=== PATIENT | female | born 1980 | race Caucasian/White ===

== ENCOUNTER 2016-12-25 12:26 | Emergency (ER) | payer BC, OTHER ==
[~2016-12-25] VITALS: Ht 165.1 cm; Wt 60.0 kg
[~2016-12-25 12:26] MED LIST: DICL75 PO; GABA600T PO; ULTR50TA PO
[2016-12-25 12:28] VITALS: BP 154/96; PULSE 97; RESP 18; TEMP 98.1; O2SAT 99
[2016-12-25] MEDS ORDERED: SODIUM CHLOR 0.9% 1000 ML INJ 1,000 ML IV ONE (12:31)
[2016-12-25] MEDS ORDERED: SODIUM CHLORIDE 0.9% FLUSH 10 ML FLUSH IVF PRN (12:45)
[2016-12-25 13:15] LABS: AUTOMATED NEUTROPHIL # 9.9 TH/MM3 (1.8-7.7); BASOPHIL % 0.2 % (0.0-2.0); EOSINOPHIL # 0.1 TH/MM3 (0-0.4); EOSINOPHIL % 0.9 % (0.0-4.0); HEMO FLAGS DIFF FINAL; LYMPH % 12.1 % (9.0-44.0); LYMPHOCYTE # 1.5 TH/MM3 (1.0-4.8); MEAN CELL VOLUME 89.3 FL (80.0-100.0); MEAN CORPUSCULAR HEMOGLOBIN 29.5 PG (27.0-34.0); MONO % 4.4 % (0.0-8.0); NEUT % 82.4 % (16.0-70.0); PLATELET COUNT 206 TH/MM3 (150-450); RED BLOOD COUNT 4.15 MIL/MM3 (4.00-5.30); RED CELL DISTRIBUTION WIDTH 12.9 % (11.6-17.2)
--- NOTE | 2016-12-25 13:23 | PD ---
HPI Chief Complaint: Seizure Time Seen by Provider: 12:31 Travel History International Travel<30 days: No Contact w/Intl Traveler<30days: No Traveled to known affect area: No History of Present Illness HPI Patient is a 36 year old female who comes in after a witnessed seizure. Patient was at the park with her children where, per EMS, she was witnessed to have generalized tonic-clonic movements. She does not remember what happened. She says she was feeling well prior to the event. She denies having a seizure before. She takes Tramadol for chronic back pain. She says she has a slight headache now. She denies any head trauma prior to the event. She denies fever or chills. She has several abrasions to her legs and elbows. Per EMS originally she did not want to come to the hospital. [facility] Past Medical History Musculoskeletal: Yes (HERNIATED DISC) ?: Not LMP: 11/28/2016 Social History Alcohol Use: Yes (SOCIALLY) Tobacco Use: No (FORMER) Substance Use: No Allergies-Medications (Allergen,Severity, Reaction): Coded Allergies: Ketorolac (Verified Adverse Reaction, Intermediate, RASH, 01/31/16) Reported Meds & Prescriptions Reported Meds & Active Scripts Active Diclofenac Sodium 75 Mg Tab 75 Mg PO BID PRN Reported Gabapentin 600 Mg Tab 600 Mg PO TID Ultram (Tramadol HCl) 50 Mg Tab 50 Mg PO Q2HR Review of Systems Except as stated in HPI: all other systems reviewed are Neg General / Constitutional: No: Fever, Chills Eyes: No: Blurred Vision HENT: Positive: Headaches Cardiovascular: No: Chest Pain or Discomfort Respiratory: No: Shortness of Breath Gastrointestinal: No: Nausea, Vomiting Musculoskeletal: No: Pain Skin: No Rash, No Change in Pigmentation Neurologic: Positive: Seizures, No: Weakness, Dizziness Physical Exam Narrative GENERAL: Awake and alert, in no acute distress. SKIN: Focused skin assessment warm/dry. Abrasion to the right elbow, right ankle and both knees. HEAD: Atraumatic. Normocephalic. EYES: Pupils equal and round. No scleral icterus. ENT: Mucous membranes pink and moist. NECK: Trachea midline. No JVD. No cervical spine tenderness. CARDIOVASCULAR: Regular rate and rhythm. No murmur appreciated. RESPIRATORY: No accessory muscle use. Clear to auscultation. Breath sounds equal bilaterally. GASTROINTESTINAL: Abdomen soft, non-tender, nondistended. Hepatic and splenic margins not palpable. MUSCULOSKELETAL: No obvious deformities. No clubbing. No cyanosis. No edema. Able to fully range all of her extremities. NEUROLOGICAL: Awake and alert. No obvious cranial nerve deficits. Motor grossly within normal limits. Normal speech. PSYCHIATRIC: Appropriate mood and affect; insight and judgment normal. Data Data Last Documented VS Vital Signs Date Time Temp Pulse Resp B/P Pulse Ox O2 Delivery O2 Flow Rate FiO2 12/25/16 16:00 71 16 133/72 99 12/25/16 12:28 98.1 Orders Complete Blood Count With Diff (12/25/16 12:31) Drug Screen, Random Urine (12/25/16 12:31) Electrocardiogram (12/25/16 ) Ct Brain W/O Iv Contrast(Rout) (12/25/16 ) Blood Glucose (12/25/16 12:31) Ecg Monitoring (12/25/16 12:31) Iv Access Insert/Monitor (12/25/16 12:31) Oximetry (12/25/16 12:31) Comprehensive Metabolic Panel (12/25/16 12:31) Sodium Chlor 0.9% 1000 Ml Inj (Ns 1000 M (12/25/16 12:31) Sodium Chloride 0.9% Flush (Ns Flush) (12/25/16 12:45) Ua Includes Microscopic (12/25/16 12:31) Urinalysis - C+S If Indicated (12/25/16 12:31) Labs Laboratory Tests Test 12/25/16 12/25/16 12:53 12:55 White Blood Count 12.0 TH/MM3 Red Blood Count 4.15 MIL/MM3 Hemoglobin 12.2 GM/DL Hematocrit 37.0 % Mean Corpuscular Volume 89.3 FL Mean Corpuscular Hemoglobin 29.5 PG Mean Corpuscular Hemoglobin 33.0 % Concent Red Cell Distribution Width 12.9 % Platelet Count 206 TH/MM3 Mean Platelet Volume 9.8 FL Neutrophils (%) (Auto) 82.4 % Lymphocytes (%) (Auto) 12.1 % Monocytes (%) (Auto) 4.4 % Eosinophils (%) (Auto) 0.9 % Basophils (%) (Auto) 0.2 % Neutrophils # (Auto) 9.9 TH/MM3 Lymphocytes # (Auto) 1.5 TH/MM3 Monocytes # (Auto) 0.5 TH/MM3 Eosinophils # (Auto) 0.1 TH/MM3 Basophils # (Auto) 0.0 TH/MM3 CBC Comment DIFF FINAL Differential Comment Sodium Level 139 MEQ/L Potassium Level 3.9 MEQ/L Chloride Level 102 MEQ/L Carbon Dioxide Level 27.9 MEQ/L Anion Gap 9 MEQ/L Blood Urea Nitrogen 9 MG/DL Creatinine 0.60 MG/DL Estimat Glomerular Filtration 112 ML/MIN Rate Random Glucose 72 MG/DL Calcium Level 8.1 MG/DL Total Bilirubin 0.4 MG/DL Aspartate Amino Transf 24 U/L (AST/SGOT) Alanine Aminotransferase 27 U/L (ALT/SGPT) Alkaline Phosphatase 46 U/L Total Protein 6.8 GM/DL Albumin 3.9 GM/DL Urine Color YELLOW Urine Turbidity HAZY Urine pH 7.5 Urine Specific [place] 1.019 Urine Protein 30 mg/dL Urine Glucose (UA) NEG mg/dL Urine Ketones TRACE mg/dL Urine Occult Blood NEG Urine Nitrite NEG Urine Bilirubin NEG Urine Urobilinogen LESS THAN 2.0 MG/DL Urine Leukocyte Esterase NEG Urine RBC LESS THAN 1 /hpf Urine WBC LESS THAN 1 /hpf Urine Squamous Epithelial 8 /hpf Cells Microscopic Urinalysis Comment CULT NOT INDICATED Urine Opiates Screen NEG Urine Barbiturates Screen NEG Urine Amphetamines Screen NEG Urine Benzodiazepines Screen NEG Urine Cocaine Screen NEG Urine Cannabinoids Screen NEG MDM Medical Decision Making Medical Screen Exam Complete: Yes Emergency Medical Condition: Yes Interpretation(s) ECG shows normal sinus rhythm at 69, no ST elevation or depression, normal intervals. Differential Diagnosis Seizure versus brain abnormality versus electrolyte abnormality versus infection Narrative Course Patient is a 36-year-old female who was witnessed to have a seizure today at the park. Exam shows no neurologic abnormalities. IV established, labs sent. Labs show no acute abnormalities. CT head shows no acute abnormalities per Dr. Kay. The report in the computer is inaccurate, and I confirmed with the radiologist that her head CT was within normal limits. Patient does take tramadol, advised this likely lowers her seizure threshold. She has not had any signs or symptoms of infection. She was observed in the emergency department without further seizure activity. She will go home with her significant other. He is advised to observe for any altered mental status and to return any time if there are concerns or she is not feeling well. Patient advised follow-up with neurology. Advised to avoid tramadol in the future. Given a prescription for Tylenol 3 for her back pain. Patient is comfortable with this plan at this time. Diagnosis Primary Impression: Seizure Referrals: Rama Choudhary MD call for appointment Patient Instructions: General Instructions, New-Onset Seizure in Adults (ED) Additional Instructions: Avoid tramadol. Follow up with neurology, Dr. Choudhary: [address] [place] [address] [phone]. Return to the ED at any time for any worsening symptoms. Scripts Acetaminophen-Codeine (Tylenol-Codeine #3)300-30 mg Tab1 Tab PO Q4H PRN (PAIN) # 10 TAB Ref 0 Prov:Mary Garvin MD 12/25/16 Disposition: 01 DISCHARGE HOME Condition: Stable Mary Garvin MD Dec 25, 2016 13:23
[2016-12-25 13:34] LABS: BLOOD, URINE NEG (NEG); COMMENT (UR) CULT NOT INDICATED; CULTURE IF INDICATED CULT NOT INDICATED; GLUCOSE,URINE NEG (NEG); KETONE, URINE TRACE mg/dL (NEG); NITRITE,URINE NEG (NEG); PH, URINE 7.5 (5.0-8.5); SQUAMOUS EPITHELIAL CELL URINE 8 /hpf (0-5); URINE COLOR YELLOW (YELLW/STRAW)
[2016-12-25 13:39] LABS: AMPHETAMINE, URINE NEG (NEG); BARBITURATES, URINE NEG (NEG); COCAINE, URINE NEG (NEG)
[2016-12-25 13:42] LABS: ALT (GPT) 27 U/L (10-53); ANION GAP 9 MEQ/L (5-15); AST (GOT) 24 U/L (15-37); BICARBONATE 27.9 MEQ/L (21.0-32.0); BLOOD UREA NITROGEN 9 MG/DL (7-18); CHLORIDE 102 MEQ/L (98-107); GLOMERULAR FILTRATION RATE 112 ML/MIN (>89); POTASSIUM 3.9 MEQ/L (3.5-5.1); SODIUM (NA) 139 MEQ/L (136-145)
[2016-12-25 13:44] LABS: ALKALINE PHOSPHATASE 46 U/L (45-117); TOTAL BILIRUBIN ADULT 0.4 MG/DL (0.2-1.0)
[2016-12-25 13:53] VITALS: O2SAT 99
[2016-12-25 14:05] VITALS: BP 131/88; PULSE 81; RESP 16; O2SAT 99
[2016-12-25 16:00] VITALS: BP 133/72; PULSE 71; RESP 16; O2SAT 99
--- NOTE | 2016-12-25 16:39 | RADRPT ---
EXAM DATE/TIME: 12/25/2016 16:10 CORRECTION Corrected on: December 25, 2016; [facility] COMPARISON: No previous studies available for comparison. INDICATIONS : New onset seizure. RADIATION DOSE: 56.35 CTDIvol (mGy) MEDICAL HISTORY : None SURGICAL HISTORY : None. ENCOUNTER: Initial ACUITY: 2 days PAIN SCALE: 0/10 LOCATION: cranial TECHNIQUE: Multiple contiguous axial images were obtained of the head. Using automated exposure control and adj ustment of the mA and/or kV according to patient size, radiation dose was kept as low as reasonably a chievable to obtain optimal diagnostic quality images. FINDINGS: CEREBRUM: The ventricles are normal for age. No evidence of midline shift, mass lesion, hemorrhage or acute in farction. No extra-axial fluid collections are seen. POSTERIOR FOSSA: The cerebellum and brainstem are intact. The 4th ventricle is midline. The cerebellopontine angle i s unremarkable. EXTRACRANIAL: The visualized portion of the orbits is intact. SKULL: The calvaria is intact. No evidence of skull fracture. CONCLUSION: Negative noncontrast CT brain. Edouard Gustafson MD on December 25, 2016 at 17:06 Board Certified Radiologist. This report was verified electronically.
[2016-12-25 17:13] VITALS: BP 131/75
[2016-12-25] MEDS ORDERED: TYLETAB34 PO (17:14)
--- NOTE | 2016-12-26 13:37 | EKG ---
Date Performed: 12/25/2016 Time Performed: 14:03:10 PTAGE: 36 years EKG: Sinus rhythm NORMAL ECG NO PREVIOUS TRACING DOCTOR: Wesley Sam Interpretating Date/Time 12/26/2016 13:33:15
== END 2016-12-25 17:22 | disposition home or self-care (01) ==
LOC: NEPC 12:26
DX: R56.9 Unspecified convulsions (principal); R51 Headache; S50.311A Abrasion of right elbow, initial encounter; S90.511A Abrasion, right ankle, initial encounter; S80.212A Abrasion, left knee, initial encounter; S80.211A Abrasion, right knee, initial encounter; Z87.39 Personal history of other diseases of the musculoskeletal system and connective tissue; X58.XXXA Exposure to other specified factors, initial encounter; Y92.830 Public park as the place of occurrence of the external cause
CPT/HCPCS: 70450; 80053; 80307; 81001; 84703; 85025; 93005; 96360; 99285; J7030

== ENCOUNTER 2017-03-21 08:55 | Observation (INO) | payer BC ==
[2017-03-21] VITALS (10 sets, daily range): BP systolic 113–130; BP diastolic 57–85; PULSE 63–105; RESP 11–24; TEMP 97.7–98; O2SAT 98–100
[~2017-03-21] VITALS: Ht 165.1 cm; Wt 59.5 kg
[~2017-03-21 08:55] MED LIST changes: +TYLETAB34 PO
[2017-03-21] MEDS ORDERED: LORazepam 2 MG/ML VIAL IV PUSH ONE ×2 (09:30→11:15)
[2017-03-21 09:33] LABS: BASOPHIL % 0.4 % (0.0-2.0); EOSINOPHIL # 0.3 TH/MM3 (0-0.4); EOSINOPHIL % 4.6 % (0.0-4.0); HEMATOCRIT 38.3 % (35.0-46.0); HEMO FLAGS DIFF FINAL; LYMPH % 28.8 % (9.0-44.0); LYMPHOCYTE # 1.9 TH/MM3 (1.0-4.8); MEAN CELL VOLUME 93.2 FL (80.0-100.0); MEAN CORPUSCULAR HGB CONC 33.3 % (32.0-36.0); MONO % 6.1 % (0.0-8.0); NEUT % 60.1 % (16.0-70.0); PLATELET COUNT 207 TH/MM3 (150-450); RED BLOOD COUNT 4.11 MIL/MM3 (4.00-5.30); RED CELL DISTRIBUTION WIDTH 13.1 % (11.6-17.2); WHITE BLOOD COUNT 6.6 TH/MM3 (4.0-11.0)
[2017-03-21 09:44] LABS: PROTHROMBIN TIME - PATIENT 10.7 SEC (9.8-11.6)
--- NOTE | 2017-03-21 09:47 | RADRPT ---
EXAM DATE/TIME: 03/21/2017 09:29 [facility] COMPARISON: No previous studies available for comparison. INDICATIONS : Short of breath, seizure today. MEDICAL HISTORY : hx of seizures SURGICAL HISTORY : None. ENCOUNTER: Initial ACUITY: 1 day PAIN SCORE: 0/10 LOCATION: Bilateral chest FINDINGS: A single view of the chest demonstrates the lungs to be symmetrically aerated without evidence of mas s, infiltrate or effusion. The cardiomediastinal contours are unremarkable. Osseous structures are intact. CONCLUSION: No acute disease. Zeke Castillo MD on March 21, 2017 at 9:45 Board Certified Radiologist. This report was verified electronically.
[2017-03-21 09:49] LABS: ALT (GPT) 40 U/L (10-53); ANION GAP 12 MEQ/L (5-15); AST (GOT) 40 U/L (15-37); BICARBONATE 23.9 MEQ/L (21.0-32.0); BLOOD UREA NITROGEN 9 MG/DL (7-18); CHLORIDE 103 MEQ/L (98-107); GLOMERULAR FILTRATION RATE 84 ML/MIN (>89); POTASSIUM 3.3 MEQ/L (3.5-5.1); SODIUM (NA) 139 MEQ/L (136-145)
[2017-03-21 09:58] LABS: ALKALINE PHOSPHATASE 51 U/L (45-117); TOTAL BILIRUBIN ADULT 0.2 MG/DL (0.2-1.0)
[2017-03-21] MEDS ORDERED: GABA300C5 PO (10:07)
[2017-03-21] MEDS ORDERED: ONDANSETRON HCL 4 MG/2 ML VIAL IV PUSH ONE (10:15)
--- NOTE | 2017-03-21 10:39 | RADRPT ---
EXAM DATE/TIME: 03/21/2017 10:30 [facility] COMPARISON: CT BRAIN W/O CONTRAST, December 25, 2016, 16:10. INDICATIONS : Seizure today. RADIATION DOSE: 33.89 CTDIvol (mGy) MEDICAL HISTORY : Seizures. SURGICAL HISTORY : None. ENCOUNTER: Initial ACUITY: 1 day PAIN SCALE: 0/10 LOCATION: cranial TECHNIQUE: Multiple contiguous axial images were obtained of the head. Using automated exposure control and adj ustment of the mA and/or kV according to patient size, radiation dose was kept as low as reasonably a chievable to obtain optimal diagnostic quality images. DICOM format image data is available electro nically for review and comparison. FINDINGS: CEREBRUM: The ventricles are normal for age. No evidence of midline shift, mass lesion, hemorrhage or acute in farction. No extra-axial fluid collections are seen. POSTERIOR FOSSA: The cerebellum and brainstem are intact. The 4th ventricle is midline. The cerebellopontine angle i s unremarkable. EXTRACRANIAL: The visualized portion of the orbits is intact. SKULL: The calvaria is intact. No evidence of skull fracture. CONCLUSION: No acute intracranial disease. Zeke Castillo MD on March 21, 2017 at 10:35 Board Certified Radiologist. This report was verified electronically.
[2017-03-21 11:08] LABS: BLOOD, URINE NEG (NEG); COMMENT (UR) CULT NOT INDICATED; CULTURE IF INDICATED CULT NOT INDICATED; GLUCOSE,URINE NEG (NEG); KETONE, URINE NEG (NEG); MUCUS URINE FEW /lpf (OCC); NITRITE,URINE NEG (NEG); SQUAMOUS EPITHELIAL CELL URINE 21 /hpf (0-5); URINE COLOR YELLOW (YELLW/STRAW)
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
[2017-03-21] MEDS ORDERED: SODIUM CHLOR 0.9% 1000 ML INJ 1,000 ML IV SCH (11:30)
[2017-03-21] MEDS ORDERED: levETIRAcetam 500 MG TAB PO ONE (11:45)
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
[2017-03-21] MEDS ORDERED: SODIUM CHLORIDE 0.9% FLUSH 10 ML FLUSH IV FLUSH PRN (12:30)
[2017-03-21] MEDS ORDERED: BISACODYL 10 MG SUPP RECTAL PRN (12:30)
[2017-03-21] MEDS ORDERED: NALOXONE HCL 0.4 MG/ML AMP IV PRN ×2 (12:30)
[2017-03-21] MEDS ORDERED: HYDROmorphone HCL PF 1 MG/ML VIAL IV PRN (12:30)
[2017-03-21] MEDS ORDERED: KETOROLAC TROMETHAMINE 30 MG/ML (IVP) VIAL IVP PRN ×2 (12:30)
[2017-03-21] MEDS ORDERED: ACETAMINOPHEN 325 MG TAB PO PRN ×2 (12:30)
[2017-03-21] MEDS ORDERED: SENNOSIDES 8.6 MG TAB PO PRN (12:30)
[2017-03-21] MEDS ORDERED: MAGNESIUM HYDROXIDE SUSP 30 ML CUP PO PRN (12:30)
[2017-03-21] MEDS ORDERED: ONDANSETRON HCL 4 MG/2 ML VIAL IVP PRN (12:30)
[2017-03-21] MEDS ORDERED: LACTULOSE SYRUP 20 GM/30 ML CUP PO PRN (12:30)
[2017-03-21] MEDS ORDERED: ACETAMINOPHEN/HYDROcodone 325 MG/7.5 MG TAB PO PRN (14:00)
--- NOTE | 2017-03-21 15:56 | RADRPT ---
EXAM DATE/TIME: 03/21/2017 15:34 [facility] COMPARISON: CT BRAIN W/O CONTRAST, March 21, 2017, 10:30. INDICATIONS : Epilepsy. MEDICAL HISTORY : Seizures. SURGICAL HISTORY : TBI ENCOUNTER: Initial ACUITY: 1 day PAIN SCORE: 10 LOCATION: Bilateral cranial TECHNIQUE: Multiplanar, multisequence MRI of the brain was performed without contrast. FINDINGS: CEREBRUM: The ventricles are normal for age. No evidence of midline shift, mass lesion, hemorrhage or acute in farction. No extraaxial fluid collections are seen. The pituitary gland and suprasellar cistern are normal in configuration. WHITE MATTER: No significant signal abnormalities are seen in the white matter. POSTERIOR FOSSA: The cerebellum and brainstem are intact. The 4th ventricle is midline. The cerebellopontine angle is unremarkable. The cerebellar tonsils are normal in position. DIFFUSION IMAGING: No focal areas of restricted diffusion are seen. No evidence of acute infarction. EXTRACRANIAL: The visualized portions of the orbits and paranasal sinuses are unremarkable. CONCLUSION: Normal examination. Cliff Stern MD on March 21, 2017 at 15:54 Board Certified Radiologist. This report was verified electronically.
[2017-03-21] MEDS ORDERED: ENALAPRILAT 1.25 MG/ML VIAL IV PRN (16:00)
[2017-03-21] MEDS ORDERED: LORazepam 2 MG/ML VIAL IV PUSH PRN (16:00)
[2017-03-21] MEDS ORDERED: ACETAMINOPHEN/HYDROcodone 325 MG/10 MG TAB PO PRN (16:15)
[2017-03-21] MEDS: ACETAMINOPHEN 325 MG TAB PO PRN (16:26)
[2017-03-21] MEDS: ENOXAPARIN SODIUM 40 MG/0.4 ML SYRINGE SQ SCH (16:26)
[2017-03-21] MEDS: DEXT 5%-NACL 0.45% 1000 ML INJ 1,000 ML IV SCH (17:55)
[2017-03-21] MEDS ORDERED: POTASSIUM CHLOR 20 MEQ PREMIX 100 ML IV ONE (18:00)
[2017-03-21 18:38] LABS: ALT (GPT) 38 U/L (10-53); ANION GAP 7 MEQ/L (5-15); AST (GOT) 35 U/L (15-37); BICARBONATE 30.3 MEQ/L (21.0-32.0); BLOOD UREA NITROGEN 8 MG/DL (7-18); CHLORIDE 101 MEQ/L (98-107); GLOMERULAR FILTRATION RATE 106 ML/MIN (>89); MAGNESIUM 1.9 MG/DL (1.5-2.5); POTASSIUM 3.8 MEQ/L (3.5-5.1); SODIUM (NA) 138 MEQ/L (136-145)
[2017-03-21 18:40] LABS: ALKALINE PHOSPHATASE 54 U/L (45-117); TOTAL BILIRUBIN ADULT 0.5 MG/DL (0.2-1.0)
--- NOTE | 2017-03-21 19:39 | EKG ---
Date Performed: 03/21/2017 Time Performed: 09:26:40 PTAGE: 36 years EKG: Sinus rhythm POSSIBLE LEFT ATRIAL ENLARGEMENT BORDERLINE ECG PREVIOUS TRACING 12/25/2016 14.03.10 Since previous tracing, no significant change noted DOCTOR: Juanito Jacob Interpretating Date/Time 03/21/2017 19:39:04
[2017-03-21] MEDS: GABAPENTIN 300 MG CAP PO SCH (20:35)
[2017-03-21] MEDS: DOCUSATE SODIUM 50 MG/SENNA 8.6 MG TAB PO SCH (20:35)
[2017-03-21] MEDS: levETIRAcetam 500 MG TAB PO SCH (20:35)
[2017-03-21] MEDS: SODIUM CHLORIDE 0.9% FLUSH 10 ML FLUSH IV FLUSH SCH (20:36)
[2017-03-22] VITALS (7 sets, daily range): BP systolic 104–131; BP diastolic 62–87; PULSE 53–66; RESP 16–20; TEMP 97–98.3; O2SAT 97–100
[2017-03-22] MEDS: ACETAMINOPHEN 325 MG TAB PO PRN ×2 (02:58→04:34)
[2017-03-22] MEDS: DEXT 5%-NACL 0.45% 1000 ML INJ 1,000 ML IV SCH (02:58)
[2017-03-22] MEDS: ACETAMINOPHEN/HYDROcodone 325 MG/5 MG TAB PO PRN ×2 (04:38→10:30)
[2017-03-22 06:52] LABS: AUTOMATED NEUTROPHIL # 2.7 TH/MM3 (1.8-7.7); BASOPHIL % 0.7 % (0.0-2.0); EOSINOPHIL # 0.4 TH/MM3 (0-0.4); EOSINOPHIL % 7.5 % (0.0-4.0); HEMATOCRIT 37.2 % (35.0-46.0); HEMO FLAGS DIFF FINAL; LYMPH % 32.7 % (9.0-44.0); LYMPHOCYTE # 1.8 TH/MM3 (1.0-4.8); MEAN CELL VOLUME 92.6 FL (80.0-100.0); MEAN CORPUSCULAR HEMOGLOBIN 31.2 PG (27.0-34.0); MEAN CORPUSCULAR HGB CONC 33.7 % (32.0-36.0); MONO % 9.1 % (0.0-8.0); PLATELET COUNT 169 TH/MM3 (150-450); RED BLOOD COUNT 4.02 MIL/MM3 (4.00-5.30); RED CELL DISTRIBUTION WIDTH 13.1 % (11.6-17.2); WHITE BLOOD COUNT 5.4 TH/MM3 (4.0-11.0)
[2017-03-22 07:16] LABS: BICARBONATE 28.9 MEQ/L (21.0-32.0); POTASSIUM 4.2 MEQ/L (3.5-5.1)
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
[2017-03-22] MEDS: DOCUSATE SODIUM 50 MG/SENNA 8.6 MG TAB PO SCH (10:12)
[2017-03-22] MEDS: GABAPENTIN 300 MG CAP PO SCH (10:12)
[2017-03-22] MEDS: SODIUM CHLORIDE 0.9% FLUSH 10 ML FLUSH IV FLUSH SCH (10:13)
[2017-03-22] MEDS: levETIRAcetam 500 MG TAB PO SCH (10:13)
--- NOTE | 2017-03-22 12:15 | MG ---
cc: JACLYN HEREDIA MD, HUNG M.D. 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 MEDICATIONS Keppra, Zofran, gabapentin, dextrose, Lovenox, Tylenol, [place]. DESCRIPTION The background activity is 9-10 Hz located posterior, bilateral and symmetrical. Attenuates to eye opening. Superimposed by excess beta activity. Hyperventilation with no major change in the EEG. Photic stimulation did not elicit a driving response. During the recording there was transitioning to stage II sleep with slowing of the background and the appearance of K-complexes. There were no electrographic seizures or epileptiform discharges noted during the recording. INTERPRETATION This is an awake, drowsy and asleep EEG. Beta activity may be related to medication adverse effects such as benzos and barbiturates. The absence of electrographic seizures or epileptiform discharges does not rule out a diagnosis of epilepsy. Clinical correlation is recommended. Jaclyn Heredia MD RGO/MISAEL /11:49 AM /12:12 PM MTDD
[2017-03-22] MEDS: ENOXAPARIN SODIUM 40 MG/0.4 ML SYRINGE SQ SCH (12:20)
--- NOTE | 2017-03-22 13:10 | ECHRPT ---
Indication: syncope CONCLUSIONS Normal left ventricular size. Wall thickness is normal. Trace mitral valve regurgitation. No aortic valve stenosis. No aortic valve regurgitation. There is mild tricuspid valve regurgitation. The estimated pulmonary arterial pressure is _31_ mmHg. The pulmonary valve is not well visualized. BP: 122 / 72 HR: 68 Rhythm: MEASUREMENTS (Male / Female) Normal Values Technical Quality:Good 2D ECHO LV Diastolic Diameter PLAX 5.2 cm 4.2 - 5.9 / 3.9 - 5.3 cm LV Systolic Diameter PLAX 3.7 cm IVS Diastolic Thickness 1.0 cm 0.6 - 1.0 / 0.6 - 0.9 cm LVPW Diastolic Thickness 0.8 cm 0.6 - 1.0 / 0.6 - 0.9 cm LV Relative Wall Thickness 0.3 RV Internal Dim ED PLAX 2.7 cm M-MODE Aortic Root Diameter MM 2.5 cm LA Systolic Diameter MM 3.1 cm LA Ao Ratio MM 1.2 AV Cusp Separation MM 2.4 cm DOPPLER Mitral E Point Velocity 98.2 cm/s Mitral A Point Velocity 72.1 cm/s Mitral E to A Ratio 1.4 LV E' Lateral Velocity 15.2 cm/s Mitral E to LV E' Lateral Ratio 6.5 LV E' Septal Velocity 7.9 cm/s Mitral E to LV E' Septal Ratio 12.4 TR Peak Velocity 231.0 cm/s TR Peak Gradient 21.3 mmHg FINDINGS LEFT VENTRICLE Normal left ventricular size. Wall thickness is normal. RIGHT VENTRICLE Normal right ventricular size and systolic function. LEFT ATRIUM The left atrial size is normal. RIGHT ATRIUM The right atrial size is normal. ATRIAL SEPTUM Normal atrial septal thickness without atrial level shunting by limited color doppler interrogation. AORTA The aortic root and proximal ascending aorta are normal in size on limited imaging. MITRAL VALVE Structurally normal mitral valve. Trace mitral valve regurgitation. AORTIC VALVE Trileaflet aortic valve. No aortic valve stenosis. No aortic valve regurgitation. TRICUSPID VALVE Structurally normal tricuspid valve. There is mild tricuspid valve regurgitation. The estimated pulmonary arterial pressure is _31_ mmHg. PULMONARY VALVE The pulmonary valve is not well visualized. VESSELS The inferior vena cava is normal in size. PERICARDIUM No pericardial effusion. Maine Rogers MD, FACC (Electronically Signed) Final Date:22 March 2017 13:09
--- NOTE | 2017-03-22 15:56 | HHI.FPPN ---
Addendum to progress note ADDENDUM Reason for addendum: Additonal documentation Additional information Discussed case w/ neurologist Dr. Tony today, who agrees with care. States he is willing to see patient on Tuesday at his office and has provided patient with contact number to schedule appointment for then. Patient should not drive for 6 months. Will make sure to relay all of the above information to patient before discharge. Rosalina Gotti MD R1 Mar 22, 2017 15:56
[2017-03-22] MEDS ORDERED: LEVE500 PO (16:05)
--- NOTE | 2017-03-22 16:08 | HHI.DCPOC ---
Discharge Care Plan Diagnosis: (1) Seizure Goals to Promote Your Health * To prevent worsening of your condition and complications, please take your medication as prescribed and follow up with neurology. * To maintain your health at the optimal level, follow up with your doctor. Directions to Meet Your Goals Take your medications as prescribed Follow your dietary instruction Follow activity as directed: NO DRIVING FOR 6 MONTHS Keep your appointments as scheduled Take your immunizations and boosters as scheduled If your symptoms worsen call your PCP, if no PCP go to Urgent Care Center or Emergency Room Smoking is Dangerous to Your Health. Avoid second hand smoke Call the 24-hour hour crisis hotline for domestic abuse at Rosalina Gotti MD R1 Mar 22, 2017 16:08 Anoop Blue MD R1 Mar 22, 2017 16:27
== END 2017-03-22 17:51 | disposition home or self-care (01) ==
LOC: NEPE 08:55 → INTOOBSV 11:55 → NEDA 11:55 → N04B 16:24 → N04A 03-22 16:12
PROVIDERS: ADMIT Family Medicine; ATTEND Family Medicine
DX: G40.409 Other generalized epilepsy and epileptic syndromes, not intractable, without status epilepticus (principal); R55 Syncope and collapse; R51 Headache; E16.2 Hypoglycemia, unspecified; G89.29 Other chronic pain; M54.40 Lumbago with sciatica, unspecified side; E87.6 Hypokalemia; R01.1 Cardiac murmur, unspecified; Z79.899 Other long term (current) drug therapy
CPT/HCPCS: 70450; 70551; 71010; 80048; 80053; 81001; 82948; 83735; 84443; 84703; 85025; 85610; 85730; 93005; 93306; 95819; 96374; 96375; 96376; 99285; G0378; J1170; J1650; J2060; J2405; J3480; J7030

== ENCOUNTER 2017-08-14 17:00 | Emergency (ER) | payer BC, OTHER ==
[~2017-08-14] VITALS: Ht 165.1 cm; Wt 59.0 kg
[~2017-08-14 17:00] MED LIST changes: -DICL75 PO; +GABA300C5 PO; -GABA600T PO; +LEVE500 PO; -TYLETAB34 PO; -ULTR50TA PO
[2017-08-14 17:07] VITALS: BP 108/63; PULSE 64; RESP 16; TEMP 97.6; O2SAT 98
[2017-08-14] MEDS ORDERED: TRAM50TA PO (17:11)
--- NOTE | 2017-08-14 17:41 | PD ---
HPI Chief Complaint: Laceration/Skin Injury Time Seen by Provider: 17:31 Travel History International Travel<30 days: No Contact w/Intl Traveler<30days: No Traveled to known affect area: No History of Present Illness HPI 36 year old female here with laceration to her left forearm caused by broken glass. She reports while she was in a trash bag into a container a piece of glass cut her arm. She denies paresthesia or weakness of the extremity. Tetanus immunization is unknown. She has pain at the site of the laceration. Symptom severity moderate. No aggravating or alleviating factors. PFSH Past Medical History Medical History: Denies Significant Hx Arthritis: No Autoimmune Disease: No Cancer: No Cardiovascular Problems: No Cerebrovascular Accident: No Diminished Hearing: No Endocrine: No Genitourinary: No Immune Disorder: No Musculoskeletal: Yes (HERNIATED DISC) Neurologic: Yes Psychiatric: No Reproductive: No Respiratory: No Migraines: No Seizures: Yes (X 03 jan 2017) Sickle Cell Disease: No Tetanus Vaccination: < 5 Years Influenza Vaccination: Yes ?: Not : 2 Para: 2 Past Surgical History Surgical History: No Previous Surgery AICD: No Arteriovenous Shunt: No Joint Replacement: No Pacemaker: No Social History Alcohol Use: Yes (SOCIALLY) Tobacco Use: No Substance Use: No Allergies-Medications (Allergen,Severity, Reaction): Coded Allergies: ketorolac (Unverified Adverse Reaction, Intermediate, RASH, 08/14/17) Reported Meds & Prescriptions Reported Meds & Active Scripts Active Reported Tramadol (Tramadol HCl) 50 Mg Tab 50 Mg PO Q8H PRN Gabapentin 300 Mg Cap 600 Mg PO BID Review of Systems Except as stated in HPI: all other systems reviewed are Neg Physical Exam Narrative GENERAL: Alert female in no distress. SKIN: Warm and dry. Laceration to the left forearm. HEAD: Normocephalic. EYES: No injection or drainage. NECK: Supple, trachea midline. CARDIOVASCULAR: Regular rate and rhythm without murmurs, gallops, or rubs. RESPIRATORY: Breath sounds equal bilaterally. No accessory muscle use. MUSCULOSKELETAL: No cyanosis, or edema. Left upper extremity: 3 cm laceration to the left distal forearm. No tendon or vascular injury identified. Normal range of motion of the wrist and digits distal to the lack. 2+ radial ulnar pulses. Normal sensation. Brisk cap refill. Data Data Last Documented VS Vital Signs Date Time Temp Pulse Resp B/P (MAP) Pulse Ox O2 Delivery O2 Flow Rate FiO2 08/14/17 17:10 (78) 08/14/17 17:07 97.6 64 16 98 Room Air Orders Orders Wrist, Limited (Ap&Lat) (08/14/17 ) [facility] Medical Decision Making Medical Screen Exam Complete: Yes Emergency Medical Condition: Yes Differential Diagnosis Laceration, tendon injury, vascular injury Narrative Course 36 -year-old female with laceration to the left distal forearm. The extremity is neurovascularly intact. Laceration repair performed. Tetanus immunization updated. Procedures Procedure Narrative LACERATION LOCATION: Left forearm LENGTH: 3 cm NUMBER OF STITCHES/COBY: 6 REPAIR: The area of the laceration was prepped with Betadine and sterilely draped. The laceration was infiltrated with 1% lidocaine. The wound was copiously irrigated and explored without evidence of foreign body, tendon injury or neurovascular injury. The wound was closed using 5-0 Ethilon. This was a SINGLE layer repair. A sterile dressing was applied. The patient was advised to keep the dressing clean and dry. Patient tolerated the procedure well. Diagnosis Primary Impression: Laceration of left forearm Qualified Codes: S51.812A - Laceration without foreign body of left forearm, initial encounter Referrals: Primary Care Physician Additional Instructions: Sutures need to be removed in 7-10 days. Do not submerge the wound in water. You may shower and wash the area daily with soap and water. Disposition: 01 DISCHARGE HOME Condition: Stable Gris Leary Aug 14, 2017 17:41
--- NOTE | 2017-08-14 18:06 | RADRPT ---
EXAM DATE/TIME: 08/14/2017 17:44 [place] COMPARISON: No previous studies available for comparison. INDICATIONS : Left wrist laceration by broken glass. MEDICAL HISTORY : None. SURGICAL HISTORY : None. ENCOUNTER: Initial ACUITY: 1 day PAIN SCORE: 6/10 LOCATION: Left wrist. FINDINGS: No fracture is seen. The bones and joints are normally aligned. No foreign body is seen. There is air in the soft tissues seen at the anterior distal forearm. CONCLUSION: Soft tissue air consistent with a laceration. Mesfin Gilbert MD on August 14, 2017 at 18:03 Board Certified Radiologist. This report was verified electronically.
[2017-08-14] MEDS ORDERED: TETANUS/DIPHTHERIA TOXOID ADULT 0.5 ML VIAL IM ONE (18:45)
== END 2017-08-14 19:07 | disposition home or self-care (01) ==
LOC: PHEFT 17:00
DX: S51.812A Laceration without foreign body of left forearm, initial encounter (principal); W25.XXXA Contact with sharp glass, initial encounter; Y93.E9 Activity, other interior property and clothing maintenance; Y92.000 Kitchen of unspecified non-institutional (private) residence as the place of occurrence of the external cause; Z23 Encounter for immunization
CPT/HCPCS: 12002; 73100; 90471; 90714; 96372